=== PATIENT | female | born 1930 | race African-American/Black ===

== ENCOUNTER 2017-08-18 21:11 | Emergency (ER) | payer MEDICARE, BC ==
[~2017-08-18] VITALS: Ht 177.8 cm; Wt 90.7 kg
[~2017-08-18 21:11] MED LIST: AVAPRO75 MG ORAL; DOK100 M1 ORAL; LEVOTHYROXINE88 MCG ORAL; LOVASTATIN40 MG ORAL
[2017-08-18] MEDS ORDERED: [UNRECOGNIZED DRUG - OTHER] (21:25)
[2017-08-18 21:30] VITALS: BP 143/95
--- NOTE | 2017-08-18 22:10 | Emergency Room Report ---
History of Present Illness General Chief Complaint: Vaginal Source: Patient, Family Member Present Illness HPI 87-year-old female brought in with daughter with acute onset of one hour of painless vaginal bleeding Patient was bending over to excelsior picker something behind the couch, then when she went to the bathroom and noticed she had some vaginal oozing of blood Not active hemorrhaging Patient states "feels like my period" however hasn't had menstrual periods since 1985 Status post hysterectomy, also hernia repair Patient denies recent dysuria, polyuria Denies history of bladder prolapse Denies any posterior vaginal trauma history of throat cancer but no history of ovarian cancer, uterine cancer or ovarian or breast cancer Allergies: Uncoded Allergies: poinsettia plant secretions (Adverse Reaction, Mild, 12/03/13) rash all over body Patient History Past Medical History: none Past Surgical History: hysterectomy, other - hernia repair Pertinent Family History: none Social History: Denies: smoking, alcohol use, drug use Last Menstrual Period: na Now: No Immunizations: UTD Reviewed Nursing Documentation: PMH: Agreed, PSxH: Agreed Nursing Documentation-PMH Hx Cardiac Problems: Yes Hx Hypertension: Yes Hx Cancer: Yes - TONSIL CANCER Hx Gastrointestinal Problems: Yes Hx Neurological Problems: No Review of Systems All Other Systems: negative except mentioned in HPI Physical Exam Vital Signs Date Time Temp Pulse Resp B/P (MAP) Pulse Ox O2 Delivery O2 Flow Rate FiO2 08/18/17 21:18 97.2 73 18 143/95 92 Room Air Sp02 EP Interpretation: reviewed, normal General Appearance: normal inspection, well appearing, no apparent distress, alert, GCS 15, non-toxic Head: normocephalic, atraumatic Eyes: bilateral eye PERRL, bilateral eye EOMI ENT: normal ENT inspection, hearing grossly normal, normal voice Neck: normal inspection, full range of motion, supple, no bony tend Respiratory: normal inspection, lungs clear, normal breath sounds, no respiratory distress, no retraction, no wheezing Cardiovascular #1: regular rate, rhythm, no edema Gastrointestinal: normal inspection, normal bowel sounds, non tender, soft, no guarding, no hernia Genitourinary: no CVA tenderness, other - RN Keily present for exam: Dry blood on posterior vagina. No active hemorrhage. Some blood at urethral meatus. Some blood within the vagina. No vaginal lacerations or external masses. Musculoskeletal: normal inspection, back normal, normal range of motion, Barbara' s Sign negative Neurologic: normal inspection, alert, responsive, speech normal Psychiatric: normal inspection, judgement/insight normal, mood/affect normal Skin: normal inspection, normal color, no rash Medical Decision Making Diagnostic Impression: Primary Impression: Vaginal bleeding Additional Impression: UTI (urinary tract infection) Qualified Codes: N30.01 - Acute cystitis with hematuria ER Course UA with mostly blood, over some bacteria, positive LE - will give antibiotics empirically CT shows endometrial thickening, possible source of vaginal bleeding. Gave patient and daughter copy of CT results, she has primary care doctor in [place] with whom I recommend they referred to gynecology for possible biopsy to evaluate for malignancy Understands to return to ER for worsening vaginal bleeding or symptoms of anemia H&H is stable here, mild leukocytosis with shift, increasing possibility of cystitis as contributing to vaginal bleeding No other symptoms very well-appearing Discharge home ER course: Patient has remained stable during ED stay. Patient is to be discharged to home. Prescriptions given are macrobid Patient is instructed to follow up with [facility] within 3 days. Strict return precautions discussed with patient such as fever, chills, worsening/severe pain, nausea, vomiting, which may indicate severe illness. Patient verbalizes understanding and agrees with plan. Please note that this Emergency Department Report was dictated using [employer] h[employer] technology software, occasionally this can lead to erroneous entry secondary to interpretation by the dictation equipment Last Vital Signs Date Time Temp Pulse Resp B/P (MAP) Pulse Ox O2 Delivery O2 Flow Rate FiO2 08/18/17 21:18 97.2 73 18 143/95 92 Room Air Status: improved Disposition: HOME, SELF-CARE Scripts Nitrofurantoin Monohyd/M-Cryst* (MACROBID 100 MG*) 100 Mg Capsule 100 MG ORAL EVERY 12 HOURS for 7 Days, #14 CAP Prov: CAROL BOSTON M.D. 08/19/17 CAROL BOSTON M.D. Aug 18, 2017 22:10
[2017-08-18 22:12] LABS: BASOPHILS % (AUTO) 0.8 % (0.0-2.0); EOSINOPHILS % (AUTO) 1.7 % (0.0-3.0); LYMPHOCYTES % (AUTO) 10.4 % (20.0-45.0); MEAN CORPUSCULAR HEMOGLOBIN 27.6 PG (27.0-31.0); MEAN CORPUSCULAR HGB CONC 31.1 G/DL (32.0-36.0); MEAN CORPUSCULAR VOLUME 89 FL (80-99); MEAN PLATELET VOLUME 7.2 FL (6.5-10.1); MONOCYTES % (AUTO) 6.9 % (1.0-10.0); NEUTROPHILS % (AUTO) 80.2 % (45.0-75.0); PLATELET COUNT 261 K/UL (150-450); RED BLOOD COUNT 5.51 M/UL (4.20-5.40); RED CELL DISTRIBUTION WIDTH 13.7 % (11.6-14.8)
[2017-08-18 22:19] LABS: ANION GAP 9 mmol/L (5-15); CALCIUM 9.3 MG/DL (8.5-10.1); CARBON DIOXIDE 29 MMOL/L (21-32); CHLORIDE 105 MMOL/L (98-107); CREATININE 1.1 MG/DL (0.55-1.30); POTASSIUM 4.2 MMOL/L (3.5-5.1); SODIUM 143 MMOL/L (136-145)
[2017-08-18 22:21] LABS: INR 0.9 (0.9-1.1); PROTHROMBIN TIME 9.4 SEC (9.30-11.50)
[2017-08-18 22:24] LABS: ALANINE AMINOTRANSFERASE 16 U/L (12-78); ALBUMIN/GLOBULIN RATIO 0.7 (1.0-2.7); ASPARTATE AMINO TRANSFERASE 16 U/L (15-37); LIPASE 137 U/L (73-393); TOTAL PROTEIN 7.8 G/DL (6.4-8.2)
[2017-08-18 22:58] LABS: APPEARANCE,URINE TURBID; KETONES,URINE 1+ (NEGATIVE); LEUKOCYTE ESTERASE ,URINE 3+ (NEGATIVE); NITRITE,URINE NEGATIVE (NEGATIVE); PH,URINE 6 (4.5-8.0); PROTEIN,URINE 3+ (NEGATIVE); UROBILINOGEN,URINE 1 MG/DL (0.0-1.0)
[2017-08-18 23:03] LABS: BACTERIA,URINE FEW /HPF; RBC,URINE TNTC /HPF (0 - 2); SQUAMOUS EPITHELIAL CELL,UR OCCASIONAL /LPF (NONE/OCC)
[2017-08-18 23:04] LABS: CALCIUM OXALATE CRYSTALS,UR FEW /LPF
[2017-08-18 23:30] VITALS: BP 138/46
[2017-08-19] MEDS ORDERED: NITROFURANTOIN100 M2 ORAL (00:06)
[2017-08-19 00:25] VITALS: BP 113/40
--- NOTE | 2017-08-19 10:10 | Diagnostic Imaging Report ---
Indication: Vaginal bleeding. Technique: CT of the abdomen and pelvis utilizing automated exposure control with intravenous contrast. Venous scanning performed. CT dose: Total DLP 881 mGycm; CTDI vol 17.6 mGy Comparison: None Findings: There is a linear atelectasis/scarring in the left lower lobe and, to a lesser extent, the anterior middle lobe. Heart is not enlarged. No pericardial effusion. Well-circumscribed low attenuation lesion in the superior right hepatic lobe is too small to definitively characterize but may represent a simple hepatic cyst. No additional liver lesion is identified. Gallbladder unremarkable in appearance. Mild adrenal gland thickening without discrete mass. Spleen is unremarkable. There is slight prominence of the proximal pancreatic duct.. There is a simple cyst in the upper pole of the left kidney that measures up to 5 cm in diameter. Calcifications in the left renal hilum are likely vascular in etiology. No hydronephrosis bilaterally. Other is under distended, limiting its evaluation. The uterus is not well evaluated on CT. Question slight endometrial prominence. Adnexa appear unremarkable on CT. There is no pathologically enlarged pelvic or retroperitoneal lymphadenopathy. There is no bowel structure and. No evidence of free intraperitoneal fluid or air. The appendix is normal. There is a small fat-containing umbilical hernia. Next uterus is unremarkable is identified. Atherosclerotic vascular calcifications are seen. Abdominal aorta is normal in caliber. Impression: Question slight endometrial prominence. Please note that the uterus and adnexa are not well evaluated on CT. Correlation with pelvic ultrasound (transabdominal and transvaginal) is recommended for better evaluation, particularly if there is abnormal uterine bleeding in this 87-year-old female. No pathologically enlarged pelvic or retroperitoneal lymph nodes identified. Nonspecific mild prominence of the proximal pancreatic duct. No definite obstructing lesion identified. Clinical correlation recommended. Comparison with prior exams would be useful to assess if this is a new finding. MRCP may be obtained as clinically indicated for further evaluation. Small hepatic hypodensities too small to thoroughly characterize but possibly representing simple hepatic cysts versus hemangiomas. Simple renal cyst in the left kidney. Findings discussed with Dr. Umanzor of the ER via telephone conversation upon creation of finalized report. The CT scanner at [facility] is accredited by the [employer] and the scans are performed using protocols designed to limit radiation exposure to as low as reasonably achievable to attain images of sufficient resolution adequate for diagnostic evaluation.
== END 2017-08-19 00:25 | disposition home or self-care (01) ==
LOC: EMR 21:20
DX: N93.9 Abnormal uterine and vaginal bleeding, unspecified (principal); N39.0 Urinary tract infection, site not specified; I10 Essential (primary) hypertension; Z85.89 Personal history of malignant neoplasm of other organs and systems; N28.1 Cyst of kidney, acquired
CPT/HCPCS: 36415; 74177; 80053; 81003; 83690; 85025; 85610; 86850; 86900; 86901; 99284; Q9967